=== PATIENT | male | born 2000 | race Hispanic/Latino ===

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

== ENCOUNTER 2022-10-24 20:59 | Emergency (ER) | payer MEDICAID ==
[2022-10-24 21:09] VITALS: BP 116/69; PULSE 60; RESP 20; O2SAT 100
[2022-10-24] MEDS ORDERED: LIDOCAINE HCL 1% 20 ML VIAL ONE (21:12)
[2022-10-24] MEDS: CEFAZOLIN SODIUM 1 GM VIAL IVPB SCH ×2 (21:25→21:28)
[2022-10-24] MEDS ORDERED: DIPH,PERTUSS(ACELL),TET VAC/PF 0.5 ML VIAL IM ONE (21:30)
== END 2022-10-24 21:55 | disposition home or self-care (01) ==
LOC: EDH 20:59
DX: S01.91XA Laceration without foreign body of unspecified part of head, initial encounter (principal); W18.09XA Striking against other object with subsequent fall, initial encounter; Y93.89 Activity, other specified; Y92.89 Other specified places as the place of occurrence of the external cause; Y99.8 Other external cause status
CPT/HCPCS: 99284; 96365; 90715; 90471; J0690

== ENCOUNTER 2022-11-03 10:35 | Emergency (ER) | payer MEDICAID ==
[~2022-11-03] VITALS: Ht 170.2 cm; Wt 73.9 kg
[2022-11-03 11:32] VITALS: BP 130/73; PULSE 53; RESP 16; O2SAT 100
== END 2022-11-03 12:59 | disposition home or self-care (01) ==
LOC: EDH 10:35
DX: S01.91XD Laceration without foreign body of unspecified part of head, subsequent encounter (principal); Z59.00 Homelessness unspecified; Z59.7 Insufficient social insurance and welfare support; X58.XXXD Exposure to other specified factors, subsequent encounter
CPT/HCPCS: 99281